=== PATIENT | male | born 1965 | race Caucasian/White ===

== ENCOUNTER 2022-10-17 13:00 | Emergency (ER) | payer OTHER ==
[2022-10-17 13:58] VITALS: BP 167/95; PULSE 90; RESP 19; TEMP 98.1; BMI 25.8
== END 2022-10-17 15:15 | disposition left against medical advice (07) ==
LOC: JER 13:00
DX: L08.89 Other specified local infections of the skin and subcutaneous tissue (principal)
CPT/HCPCS: 99281-25